=== PATIENT | male | born 1995 | race Caucasian/White ===

== ENCOUNTER 2016-09-24 20:46 | Emergency (ER) | payer SELFPAY ==
[2016-09-24] MEDS ORDERED: predniSONE 20 MG TAB ONE (21:39)
[2016-09-24] MEDS ORDERED: Amoxicillin/Potassium Clav 875 MG TAB ONE (21:39)
[2016-09-24] MEDS ORDERED: Ketorolac Tromethamine 60 MG/2 ML VIAL ONE (21:39)
== END 2016-09-24 22:21 | disposition home or self-care (01) ==
LOC: NAV ERS 20:46
DX: J02.9 Acute pharyngitis, unspecified (principal); F32.9 Major depressive disorder, single episode, unspecified; F41.9 Anxiety disorder, unspecified; F17.210 Nicotine dependence, cigarettes, uncomplicated
CPT/HCPCS: 96372; J1885; J7506

== ENCOUNTER 2016-11-29 01:54 | Emergency (ER) | payer SELFPAY ==
[2016-11-29] MEDS ORDERED: Acetaminophen/Codeine 30-300mg Tablet ONE (02:45)
--- NOTE | 2016-11-29 08:17 | RAD ---
3 VIEWS LEFT SHOULDER: Date: 11/29/16 COMPARISON: None. HISTORY: Left shoulder dislocation a few days ago with pain. Patient relocated his shoulder dislocation. FINDINGS: Three views of the left shoulder show no evidence of acute fracture or dislocation on the current ex am. No focal soft tissue swelling is seen. No degenerative changes are present. IMPRESSION: Unremarkable exam. POS: [facility]
== END 2016-11-29 03:00 | disposition home or self-care (01) ==
LOC: NAV ERS 01:54
DX: M25.512 Pain in left shoulder (principal); I10 Essential (primary) hypertension; J45.909 Unspecified asthma, uncomplicated; F41.9 Anxiety disorder, unspecified; F32.9 Major depressive disorder, single episode, unspecified; F43.10 Post-traumatic stress disorder, unspecified

== ENCOUNTER 2016-12-08 14:11 | Emergency (ER) | payer SELFPAY ==
[2016-12-08] MEDS ORDERED: Lorazepam 2 MG/ML VIAL ONE (14:33)
[2016-12-08 14:47] LABS: #Basophils 0.1 thou/uL (0.0-0.2); #Eosinphils 0.1 thou/uL (0.0-0.7); #Monocytes 0.4 thou/uL (0.11-0.59); #Neutrophils 4.7 thou/uL (1.40-6.50); %Basophils 0.9 % (0.0-1.0); %Eosinophils 2.1 % (0.0-10.0); %Lymphocytes 16.3 % (21.0-51.0); %Monocytes 6.8 % (0.0-10.0); %Neutrophils 73.8 % (42.0-75.0); Hemoglobin 13.7 g/dL (14.0-18.0); Mean Corpuscular Hemoglobin 28.2 pg (27.0-31.0); Mean Corpuscular Volume 85.4 fl (80.0-94.0); Platelet Count 307 thou/uL (130-400); RBC Distribution Width 12.3 % (11.5-14.5); Red Blood Cell (RBC) Count 4.87 mill/uL (4.70-6.10); White Blood Cell (WBC) Count 6.4 thou/uL (4.8-10.8)
[2016-12-08 14:50] LABS: Bilirubin Negative (Negative); Blood, Urine Negative (Negative); Clarity Clear (Clear); Glucose, Urine (Dipstick) Negative (Negative); Leukocyte Negative (Negative); Nitrite Negative (Negative); Protein, Urine (Dipstick) Negative (Neg-Trace); Urobilinogen 0.2 mg/dL (0.2-1.0); pH, Urine 7.5 (5.0-9.0)
[2016-12-08 15:00] LABS: Acetaminophen Less than 6.0 mcg/mL (10.0-30.0); Alcohol Less than 10 mg/dL (Less than 10); Salicylate Less than 8.0 mg/dL (15.0-30.0)
[2016-12-08 15:05] LABS: Amphetamine Not Detected (NotDetected); Barbiturates Screen Not Detected (NotDetected); Benzodiazepine Screen Not Detected (NotDetected); Cocaine Metabolite Screen Not Detected (NotDetected); Medtox Control Line Valid? VALID (VALID); Methadone Not Detected (NotDetected); Methamphetamine Not Detected (NotDetected); Opiate Screen Not Detected (NotDetected); Oxycodone Screen Not Detected (NotDetected); Phencyclidine (PCP) Not Detected (NotDetected); THC/Cannabinoid Screen Not Detected (NotDetected); Tricyclic Screen Not Detected (NotDetected)
[2016-12-08 15:07] LABS: ALT (SGPT) 28 U/L (8-55); AST (SGOT) 21 U/L (5-34); Albumin 4.7 g/dL (3.5-5.0); Alkaline Phosphatase 79 U/L (40-150); Anion Gap 14 mmol/L (10-20); BUN (Urea Nitrogen) 18 mg/dL (8.9-20.6); Bilirubin, Total 0.5 mg/dL (0.2-1.2); Calc. Creatinine Clearance 0 mL/min (70-130); Calcium 9.9 mg/dL (7.8-10.44); Carbon Dioxide 24 mmol/L (22-29); Chloride 107 mmol/L (98-107); Estimated GFR-MDRD Greater than 90; Globulin 3.3 g/dL (2.4-3.5); Glucose 121 mg/dL (70-105); Sodium 141 mmol/L (136-145)
== END 2016-12-08 17:27 | disposition home or self-care (01) ==
LOC: NAV ERS 14:11
DX: F41.9 Anxiety disorder, unspecified (principal); I10 Essential (primary) hypertension; J45.909 Unspecified asthma, uncomplicated; F32.9 Major depressive disorder, single episode, unspecified; F43.10 Post-traumatic stress disorder, unspecified
CPT/HCPCS: 80053; 80306; 80307; 81003; 85025; 96372; J2060

== ENCOUNTER 2017-01-26 16:12 | Emergency (ER) | payer SELFPAY ==
--- NOTE | 2017-01-26 16:40 | RAD ---
RIGHT HAND THREE VIEWS: 01/26/17 HISTORY: Injury, right hand pain. FINDINGS/IMPRESSION: No acute fracture or dislocation is identified. POS: [facility]
== END 2017-01-26 16:47 | disposition home or self-care (01) ==
LOC: NAV ERS 16:12
DX: S60.221A Contusion of right hand, initial encounter (principal); J45.909 Unspecified asthma, uncomplicated; I10 Essential (primary) hypertension; F32.9 Major depressive disorder, single episode, unspecified; F41.9 Anxiety disorder, unspecified; F43.10 Post-traumatic stress disorder, unspecified; W50.0XXA Accidental hit or strike by another person, initial encounter; Y93.61 Activity, american tackle football

== ENCOUNTER 2017-08-16 20:59 | Emergency (ER) | payer SELFPAY ==
[2017-08-16] MEDS ORDERED: Lorazepam 1 MG TAB ONE (21:34)
== END 2017-08-16 22:32 | disposition home or self-care (01) ==
LOC: NAV ERS 20:59
DX: F41.9 Anxiety disorder, unspecified (principal); I10 Essential (primary) hypertension; J45.909 Unspecified asthma, uncomplicated; F32.9 Major depressive disorder, single episode, unspecified; F43.10 Post-traumatic stress disorder, unspecified; Z79.899 Other long term (current) drug therapy
CPT/HCPCS: 99284

== ENCOUNTER 2018-03-21 20:34 | Emergency (ER) | payer SELFPAY ==
--- NOTE | 2018-03-21 21:58 | RAD ---
LEFT HUMERUS TWO VIEWS: 03/21/18 HISTORY: Trauma to upper arm. There is no signs of fracture. No radiopaque foreign bodies are seen. IMPRESSION: Negative left humerus. POS: [facility]
== END 2018-03-21 21:50 | disposition home or self-care (01) ==
LOC: NAV ERS 20:34
DX: S41.132A Puncture wound without foreign body of left upper arm, initial encounter (principal); J45.909 Unspecified asthma, uncomplicated; Z87.891 Personal history of nicotine dependence; F41.9 Anxiety disorder, unspecified; F43.10 Post-traumatic stress disorder, unspecified; Z79.899 Other long term (current) drug therapy; W45.8XXA Other foreign body or object entering through skin, initial encounter